=== PATIENT | male | born 1995 | race Caucasian/White ===

== ENCOUNTER 2016-07-23 00:01 | Emergency (ER) | payer MEDICAID ==
[2016-07-23 02:09] VITALS: BP 117/65
--- NOTE | 2016-07-23 04:03 | ED ---
Choco Garcia Billy, scribed for Mike Jeffrey MD on 07/23/16 at 0043 . 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 He is intoxicated and unable to provide a full history, but EMS states that he had approximately 8 drinks today. - History Of Current Complaint Chief Complaint: EDSubstanceAbuse Stated Complaint: ETOH Time Seen by Provider: 07/23/16 00:06 Hx Obtained From: EMS Hx From Patient Unobtainable Due To: Other - EtOH intoxication Onset/Duration of Drug/ETOH Abuse: Hours Ingestion History: Type/Name Of Drug - EtOH Overdose Characteristics: Oral Timing Of Abuse: Binge Use Severity Initially: Moderate Severity Currently: Moderate Aggravating Factor(s): Nothing Alleviating Factor(s): Nothing PMH/Surg Hx/FS Hx/Imm Hx Infectious Disease History: No Infectious Disease History: Denies: Traveled Outside the [place] in Last 30 Days - Family History Known Family History: Positive: Unknown - Not obtained secondary to EtOH. - Social History Alcohol Use: Rare Alcohol Amount: 07/22/16 Substance Use Type: Reports: None Smoking Status (MU): Never Smoked Tobacco Review of Systems Neurological: Other - EtOH intoxication All Other Systems Reviewed And Are Negative: No - Comments Additional Review of Systems Comments: Full ROS not obtained secondary to his intoxicated state. Physical Exam Triage Information Reviewed: Yes Vital Signs On Initial Exam: Initial Vitals Temp Pulse Resp BP Pulse Ox 97.0 F 91 18 114/75 98 07/23/16 00:09 07/23/16 00:09 07/23/16 00:09 07/23/16 00:09 07/23/16 00:09 Vital Signs Reviewed: Yes Appearance: Positive: Well-Appearing - aob Skin: Positive: Warm Eyes: Positive: BETSEY ENT: Positive: Hearing grossly normal Neck: Positive: Supple Respiratory/Lung Sounds: Positive: Breath Sounds Present Cardiovascular: Positive: RRR Abdomen Description: Positive: Nontender, Soft Bowel Sounds: Positive: Present Musculoskeletal: Positive: Strength/ROM Intact Neurological: Positive: Sensory/Motor Intact Psychiatric: Positive: Affect/Mood Appropriate - [place] Coma Scale Coma Scale Total: 15 Diagnostics - Vital Signs Vital Signs Temp Pulse Resp BP Pulse Ox 07/23/16 00:17 14 07/23/16 00:09 97.0 F 91 18 114/75 98 - Laboratory Lab Results: Lab Results 07/23/16 Range/Units 00:10 Serum Alcohol 196 H (<10) mg/dL Lab Statement: Any lab studies that have been ordered have been reviewed, and results considered in the medical decision making process. Re-Evaluation - Re-Evaluation First Eval Change: Improved Course/Dx - Diagnoses Provider Diagnoses: Alcohol intoxication Discharge - Discharge Plan Condition: Stable Disposition: HOME Patient Education Materials: Alcohol Intoxication (ED) Referrals: [facility] [Outside] [facility] @ [Outside] The documentation as recorded by the Choco franklin Billy accurately reflects the service I personally performed and the decisions made by me, Mike Jeffrey MD.
== END 2016-07-23 04:47 | disposition home or self-care (01) ==
LOC: ED 00:01
DX: F10.129 Alcohol abuse with intoxication, unspecified (principal); Y90.6 Blood alcohol level of 120-199 mg/100 ml
CPT/HCPCS: 36415; 80320; 87389; 99282; G0475; G0480